=== PATIENT | female | born 1980 | race Caucasian/White ===

== ENCOUNTER 2017-06-27 16:38 | Emergency (ER) | payer SELFPAY ==
[~2017-06-27] VITALS: Ht 167.6 cm; Wt 81.6 kg
[~2017-06-27 16:38] MED LIST: IBUPROFEN600 MG ORAL; KEFLEX500 MG ORAL; NORCO 5-325 TA1 EACH ORAL; ROBAXIN-750750 MG PO
[2017-06-27 16:52] VITALS: BP 142/84
--- NOTE | 2017-06-27 16:57 | Emergency Room Report ---
History of Present Illness General Chief Complaint: Wound Recheck/Suture Removal Source: Patient Present Illness HPI Patient presents with reports that she had a drain placed and after liposuction in [place] Patient reports that she felt area had become irritated was concerned about infection She was supposed to be seeing her primary physician next Sunday However as the erythema was concerning she presents to the ER Denies any fevers or chills Denies any abdominal pain Allergies: Coded Allergies: No Known Allergies (Unverified , 09/08/14) Patient History Past Medical History: see triage record Past Surgical History: unable to obtain Pertinent Family History: none Last Menstrual Period: Jun 13 Now: No Reviewed Nursing Documentation: PMH: Agreed; PSxH: Agreed Nursing Documentation-PMH Past Medical History: No History, Except For Review of Systems All Other Systems: negative except mentioned in HPI Physical Exam Vital Signs Date Time Temp Pulse Resp B/P (MAP) Pulse Ox O2 Delivery O2 Flow Rate FiO2 06/27/17 16:47 98.7 90 18 142/84 98 Room Air 98.8 Sp02 EP Interpretation: reviewed, normal General Appearance: well appearing, no apparent distress Head: normocephalic, atraumatic Eyes: bilateral eye PERRL, bilateral eye EOMI ENT: hearing grossly normal, normal pharynx, TMs + canals normal, uvula midline Neck: full range of motion, supple, no meningismus, no bony tend Respiratory: lungs clear, normal breath sounds, no rhonchi, no respiratory distress, no retraction, no accessory muscle use Cardiovascular #1: normal peripheral pulses, regular rate, rhythm, no edema, no gallop, no JVD, no murmur Gastrointestinal: normal bowel sounds, non tender, soft, no mass, no organomegaly, non-distended, no guarding, no hernia, no pulsatile mass, no rebound, other - Patient has a drain in place essentially in the right lower abdominal area, lateral to the suprapubic region, appears to be sutured in with very minimal surrounding erythematous changes Musculoskeletal: normal inspection Neurologic: oriented x3, responsive, wallpaper inspector III-XII nml as tested, motor strength/ tone normal, sensory intact Psychiatric: mood/affect normal Skin: other - As above Lymphatic: normal inspection, no adenopathy Medical Decision Making Diagnostic Impression: Primary Impression: Encounter for wound re-check Additional Impression: Change or removal of drains ER Course Given the patient's history and presentation Patient's concern about possible early infection I did discuss with her that it is not routine process to remove drains that had been placed by other specialty Patient however is asking repeatedly to have it removed Reports that she will not be up to see her primary physician for 1 more week and the area is extremely irritated Given this Patient understands that they can be risk factors and side effects She is agreeable The area was cleansed and prepped 2 sutures were removed and after this the drain was retracted without any incidents patient started procedure well And will have close outpatient follow-up Last Vital Signs Date Time Temp Pulse Resp B/P (MAP) Pulse Ox O2 Delivery O2 Flow Rate FiO2 06/27/17 16:52 98.8 90 18 142/84 98 Room Air 98.8 Status: improved Disposition: HOME, SELF-CARE Condition: Improved Additional Instructions: Patient is provided with the discharge instructions notified to follow up with primary doctor in the next 2-3 days otherwise return to the er with any worsening symptoms. Please note that this report is being documented using [employer] technology. This can lead to erroneous entry secondary to incorrect interpretation by the dictating instrument. Roly Torrez DO Jun 27, 2017 16:57
[2017-06-27 17:30] VITALS: BP 142/84
== END 2017-06-27 17:30 | disposition home or self-care (01) ==
LOC: EMR 17:20
DX: Z48.03 Encounter for change or removal of drains (principal)
CPT/HCPCS: 99281